=== PATIENT | female | born 1985 | race Caucasian/White ===

== ENCOUNTER 2019-07-31 11:00 | Emergency (ER) | payer MEDICAID ==
[~2019-07-31] VITALS: Ht 154.9 cm; Wt 49.9 kg
--- NOTE | 2019-07-31 11:12 | NUR ---
Patient discharged to home in stable conditon. Written and verbal after care instructions given. Patient verbalizes understanding of instructions.
[2019-07-31 11:22] LABS: *BILIRUBIN,URIN NEGATIVE (NEGATIVE); *BLOOD, URINE 2+ (NEGATIVE); *CLARITY,URINE CLEAR (CLEAR); *COLOR,URINE YELLOW (YELLOW); *KETONES,URINE NEGATIVE (NEGATIVE); *UROBILINOGEN,URINE 0.2 E.U./dl (NORMAL); LEUKOCYTE ESTERASE ,URINE 2+ (NEGATIVE); NITRITE, URINE NEGATIVE (NEGATIVE); UGLUCOSE NEGATIVE (NEGATIVE)
[2019-07-31 11:40] LABS: BACTERIA,URINE FEW /HPF (NONE SEEN); RBC,URINE 0-3 /HPF (0-3); SQUAMOUS EPITHELIAL CELL,UR FEW /HPF (NONE SEEN)
[2019-07-31 11:45] LABS: *URINE HCG, QUAL NEGATIVE (NEGATIVE)
== END 2019-07-31 11:13 | disposition home or self-care (01) ==
LOC: ER 11:00
DX: N30.90 Cystitis, unspecified without hematuria (principal)
CPT/HCPCS: 84703; 87077; 87086; A4663